=== PATIENT | male | born 1995 | race Caucasian/White ===

== ENCOUNTER 2017-09-09 19:46 | Emergency (ER) | payer OTHER ==
[~2017-09-09] VITALS: Ht 167.6 cm; Wt 109.4 kg
[2017-09-09 20:27] VITALS: BP 152/65
--- NOTE | 2017-09-09 20:34 | NUR ---
TO LOBBY, AMB, VSS, EKG DONE, A/W BED, ERMD NOTED
--- NOTE | 2017-09-09 20:50 | NUR ---
TO ER OF2
--- NOTE | 2017-09-09 20:52 | NUR ---
PATIENT IS A 22 Y/O MALE WHO PRESENTS TO THE ED C/O CHEST PAIN. PT STATES, "I HAVE BEEN FEELING SICK SINCE WEDNESDAY." PT REPORTS 8/10 SHARP CHEST PAIN THAT DOES NOT RADIATE. PT DENIES SOB, N/V/D. PT AAOX4, RR EVEN/UNLABORED. PT REPOSITIONED FOR COMFORT, ER MD DR. LIRA NOTIFIED. WILL CONTINUE TO MONITOR.
[2017-09-09] MEDS ORDERED: DEXAMETHASONE 4 MG/ML VIAL ONE (21:51)
[2017-09-09 22:21] LABS: BASOPHILS # (AUTO) 0.3 K/uL (0.00-0.22); BASOPHILS % (AUTO) 4.2 % (0.0-2.0); EOSINOPHILS % (AUTO) 0.1 % (0.0-4.0); HEMATOCRIT 53.5 % (36-52); HEMOGLOBIN 17.8 g/dL (12.0-18.0); LYMPHOCYTES # (AUTO) 2.7 K/uL (2.0-11.5); LYMPHOCYTES % (AUTO) 41.5 % (20.5-51.1); MEAN CORPUSCULAR HEMOGLOBIN 28 pg (27-31); MEAN CORPUSCULAR HGB CONC 33 g/dL (33-37); MEAN CORPUSCULAR VOLUME 85 fL (80-94); MONOCYTES # (AUTO) 1.1 K/uL (0.8-1.0); NEUTROPHILS # (AUTO) 2.3 K/uL (1.8-7.7); NEUTROPHILS % (AUTO) 36.7 % (42.2-75.2); PLATELET COUNT (AUTO) 183 K/uL (140-450); RED BLOOD CELL COUNT(AUTO) 6.33 MIL/uL (4.20-6.10); RED CELL DISTRIBUTION WIDTH 12.6 % (11.6-13.7); WHITE BLOOD COUNT (AUTO) 6.4 K/uL (4.8-10.8)
[2017-09-09] MEDS ORDERED: NACL 0.9% 1,500 ML IV ONE (22:25)
[2017-09-09] MEDS ORDERED: KETOROLAC 30 MG/ML VIAL IVP ONE (22:30)
[2017-09-09 22:38] LABS: ANION GAP 13.4 (8-16); CARBON DIOXIDE 28.1 mmol/L (21-32); POTASSIUM 3.5 mmol/L (3.5-5.1)
[2017-09-09 22:47] LABS: MONOCYTES % (AUTO) 17.5 % (1.7-9.3)
[2017-09-09 22:57] LABS: ALBUMIN 4.4 g/dL (3.4-5.0); TOTAL BILIRUBIN 0.3 mg/dL (0.0-1.0)
[2017-09-09 23:38] VITALS: BP 142/70
--- NOTE | 2017-09-09 23:38 | NUR ---
Patient discharged with v/s stable. Written and verbal after care instructions given and explained. Patient alert, oriented and verbalized understanding of instructions. Ambulatory with steady gait. All questions addressed prior to discharge. ID band removed. Patient advised to follow up with PMD. Rx of ROBITUSSIN AND MOTRIN given. Patient educated on indication of medication including possible reaction and side effects. Opportunity to ask questions provided and answered.
== END 2017-09-09 23:38 | disposition home or self-care (01) ==
LOC: MED 19:46
DX: J11.1 Influenza due to unidentified influenza virus with other respiratory manifestations (principal); F17.200 Nicotine dependence, unspecified, uncomplicated
CPT/HCPCS: 36415; 71045; 80053; 84484; 85025; 85379; 96361; 96374; 99285; J1100; J1885; J7030

== ENCOUNTER 2018-09-05 18:42 | Emergency (ER) | payer OTHER ==
[~2018-09-05] VITALS: Ht 170.2 cm; Wt 122.7 kg
[2018-09-05 19:16] VITALS: BP 160/84
--- NOTE | 2018-09-05 19:17 | NUR ---
PT RETURNED TO LOBBY IN STABLE CONDITION
[2018-09-05 21:18] LABS: BASOPHILS % (AUTO) 0.2 % (0.0-2.0); EOSINOPHILS # (AUTO) 0.1 K/uL (0-0.4); EOSINOPHILS % (AUTO) 0.5 % (0.0-4.0); HEMATOCRIT 47.4 % (36-52); HEMOGLOBIN 15.5 g/dL (12.0-18.0); LYMPHOCYTES % (AUTO) 29.7 % (20.5-51.1); MEAN CORPUSCULAR HEMOGLOBIN 28 pg (27-31); MEAN CORPUSCULAR HGB CONC 33 g/dL (33-37); MEAN CORPUSCULAR VOLUME 85.3 fL (80-94); MONOCYTES # (AUTO) 1.2 K/uL (0.8-1.0); MONOCYTES % (AUTO) 8.7 % (1.7-9.3); NEUTROPHILS # (AUTO) 8.3 K/uL (1.8-7.7); NEUTROPHILS % (AUTO) 60.9 % (42.2-75.2); PLATELET COUNT (AUTO) 236 K/uL (140-450); RED BLOOD CELL COUNT(AUTO) 5.56 MIL/uL (4.20-6.10); RED CELL DISTRIBUTION WIDTH 13.5 % (11.6-13.7); WHITE BLOOD COUNT (AUTO) 13.6 K/uL (4.8-10.8)
[2018-09-05 21:41] LABS: ANION GAP 12.7 (8-16); CARBON DIOXIDE 31.1 mmol/L (21-32); CREATININE 0.9 mg/dL (0.7-1.3); POTASSIUM 3.8 mmol/L (3.5-5.1)
[2018-09-05 21:46] LABS: ALBUMIN 4.1 g/dL (3.4-5.0); TOTAL BILIRUBIN 0.4 mg/dL (0.0-1.0)
--- NOTE | 2018-09-05 21:49 | NUR ---
PT CAME IN TO ED WITH C/O UMBILICAL PAIN. PT STATES PAIN STARTED ABOUT 3 DAYS AGO AND THAT TODAY, HE NOTICED BLOOD COMING OUT OF A 6YR OLD HEALED INCISION AT UMBILICAL SITE. PT DENIES N/V/D, AND DENIES HAVING OTHER SYMPTOMS. NO SIGNS OF DISTRESS NOTED. PT RESTING IN BED WITH MOTHER AT BEDSIDE. VSS.
--- NOTE | 2018-09-05 21:49 | NUR ---
PT AMBULATED TO BED 10.
--- NOTE | 2018-09-05 22:53 | NUR ---
Dr. Zelaya evaluating patient at bedside.
[2018-09-05] MEDS ORDERED: KETOROLAC 30 MG/ML VIAL IVP ONE (23:05)
[2018-09-05] MEDS ORDERED: ONDANSETRON 4 MG/2 ML VIAL IVP ONE (23:05)
[2018-09-05] MEDS ORDERED: MORPHINE SULFATE 4 MG/ML SYR IVP ONE (23:05)
--- NOTE | 2018-09-05 23:39 | NUR ---
PT TAKEN TO CT
[2018-09-05 23:46] LABS: APPEARANCE,URINE CLEAR (CLEAR); BILIRUBIN,URINE NEGATIVE (NEGATIVE); BLOOD, URINE NEGATIVE (NEGATIVE); COLOR,URINE YELLOW (YELLOW); LEUKOCYTE ESTERASE ,URINE NEGATIVE (NEGATIVE); NITRITE, URINE NEGATIVE (NEGATIVE); PH,URINE 6.5 (5.0-9.0); UGLUCOSE NEGATIVE (NEGATIVE)
--- NOTE | 2018-09-05 23:56 | NUR ---
PT RETURN FROM CT
--- NOTE | 2018-09-06 01:15 | NUR ---
PT RESTING, VSS. NO S/S OF DISTRESS NOTED.
[2018-09-06 02:05] VITALS: BP 146/69
--- NOTE | 2018-09-06 02:05 | NUR ---
Patient discharged with v/s stable. Written and verbal after care instructions given and explained. Patient alert, oriented and verbalized understanding of instructions. Ambulatory with steady gait. All questions addressed prior to discharge. ID band removed. Patient advised to follow up with PMD. Rx of CLINDAMYCIN HYDROCHLORIDE 300MG, AND IBUPROFEN 600MG given. Patient educated on indication of medication including possible reaction and side effects. Opportunity to ask questions provided and answered.
== END 2018-09-06 02:05 | disposition home or self-care (01) ==
LOC: MED 18:42
DX: L03.311 Cellulitis of abdominal wall (principal); K76.0 Fatty (change of) liver, not elsewhere classified; J45.909 Unspecified asthma, uncomplicated; Z90.49 Acquired absence of other specified parts of digestive tract
CPT/HCPCS: 36415; 74177; 80053; 81003; 83690; 85025; 96374; 96375; 99284; J1885; J2270; J2405; Q9967